=== PATIENT | male | born 1975 | race Caucasian/White ===

== ENCOUNTER 2017-05-29 01:29 | Emergency (ER) | payer SELFPAY ==
[~2017-05-29] VITALS: Ht 182.9 cm; Wt 80.0 kg
[2017-05-29 01:41] VITALS: BP 153/96; PULSE 92; RESP 16; TEMP 98.5; O2SAT 93
--- NOTE | 2017-05-29 02:26 | PD ---
HPI Chief Complaint: Alcohol/Drug Intoxication Time Seen by Provider: 02:15 Travel History International Travel<30 days: No Contact w/Intl Traveler<30days: No Traveled to known affect area: No History of Present Illness HPI 41-year-old male presents for evaluation of alcohol intoxication. History is primarily obtained by the patient. He reports that he traveled down here 2 days ago from [place] for spring. He reports that this evening he was drinking at a bar and he does not remember what happened after that prior to arriving here. He has no medical complaints and is very intoxicated. [facility] Past Medical History Medical History: Denies Significant Hx Tetanus Vaccination: Unknown Influenza Vaccination: No Past Surgical History Surgical History: No Previous Surgery Social History Alcohol Use: Yes Tobacco Use: Yes Substance Use: No Allergies-Medications (Allergen,Severity, Reaction): Coded Allergies: No Known Allergies (Unverified , 05/29/17) Reported Meds & Prescriptions Reported Meds & Active Scripts Active No Active Prescriptions or Reported Medications Review of Systems ROS Limitations: Intoxication Except as stated in HPI: all other systems reviewed are Neg Physical Exam Exam Limitations: Intoxication Narrative GENERAL: Disheveled male in no acute distress SKIN: Warm and dry. There is some dried blood noted in the hair. HEAD: Atraumatic. Normocephalic. EYES: Pupils equal and round. No scleral icterus. No injection or drainage. ENT: No nasal bleeding or discharge. Mucous membranes pink and moist. NECK: Trachea midline. No JVD. CARDIOVASCULAR: Regular rate and rhythm. No murmur appreciated. RESPIRATORY: No accessory muscle use. Clear to auscultation. Breath sounds equal bilaterally. GASTROINTESTINAL: Abdomen soft, non-tender, nondistended. Hepatic and splenic margins not palpable. MUSCULOSKELETAL: No obvious deformities. No obvious tenderness to palpation to the neck, back, arms, legs. NEUROLOGICAL: Awake and alert. No obvious cranial nerve deficits. Motor grossly within normal limits. Slurred speech Data Data Last Documented VS Vital Signs Date Time Temp Pulse Resp B/P (MAP) Pulse Ox O2 Delivery O2 Flow Rate FiO2 05/29/17 01:41 98.5 92 16 153/96 (115) 93 Room Air Orders Orders Ct Brain W/O Iv Contrast(Rout) (05/29/17 ) [facility] Medical Decision Making Medical Screen Exam Complete: Yes Emergency Medical Condition: Yes Medical Record Reviewed: Yes Differential Diagnosis Alcohol intoxication, closed head injury, polysubstance abuse Narrative Course CT the brain was obtained revealing no acute normalities. The patient remain here until he is clinically sober and then he will be discharged. Diagnosis Primary Impression: Alcohol intoxication Med/Other Pt SpecificInfo: No Change to Meds Scripts No Active Prescriptions or Reported Meds Disposition: 01 DISCHARGE HOME Condition: Stable Cristian Beaulieu May 29, 2017 02:26
--- NOTE | 2017-05-29 03:18 | RADRPT ---
EXAM DATE/TIME: 05/29/2017 03:01 [facility] COMPARISON: No previous studies available for comparison. INDICATIONS : Cephalgia. RADIATION DOSE: 58.69 CTDIvol (mGy) ; Patient motion MEDICAL HISTORY : ETOH SURGICAL HISTORY : None. ENCOUNTER: Initial ACUITY: 1 day PAIN SCALE: 5/10 LOCATION: cranial TECHNIQUE: Multiple contiguous axial images were obtained of the head. Using automated exposure control and adj ustment of the mA and/or kV according to patient size, radiation dose was kept as low as reasonably a chievable to obtain optimal diagnostic quality images. DICOM format image data is available electro nically for review and comparison. FINDINGS: CEREBRUM: The ventricles are normal for age. No evidence of midline shift, mass lesion, hemorrhage or acute in farction. No extra-axial fluid collections are seen. POSTERIOR FOSSA: The cerebellum and brainstem are intact. The 4th ventricle is midline. The cerebellopontine angle i s unremarkable. EXTRACRANIAL: The visualized portion of the orbits is intact. SKULL: The calvaria is intact. No evidence of skull fracture. CONCLUSION: 1. No acute findings in the brain. David Shultz MD on May 29, 2017 at 3:16 Board Certified Radiologist. This report was verified electronically.
[2017-05-29 07:55] VITALS: BP 134/72; PULSE 77; RESP 17; O2SAT 100
[2017-05-29 09:22] VITALS: BP 132/70
== END 2017-05-29 09:55 | disposition home or self-care (01) ==
LOC: NEPD 01:29
DX: F10.129 Alcohol abuse with intoxication, unspecified (principal); Z72.0 Tobacco use
CPT/HCPCS: 70450; 99283